=== PATIENT | male | born 1990 | race Caucasian/White ===

== ENCOUNTER 2016-11-29 19:46 | Emergency (ER) | payer OTHER ==
[2016-11-29 20:03] VITALS: BP 134/72; PULSE 66; RESP 16; TEMP 98.2; O2SAT 99
[2016-11-29] MEDS ORDERED: TDAP Vaccine 0.5 mL Syr IM ONE (20:20)
--- NOTE | 2016-11-29 21:05 | ED PDOC ---
Lower Extremity Pain/Injury Time Seen by Provider: 11/29/16 20:00 Chief Complaint (Nursing): Abnormal Skin Integrity Chief Complaint (Provider): left leg pain History Per: Patient History/Exam Limitations: no limitations Onset/Duration Of Symptoms: Hrs (earlier today) Current Symptoms Are (Timing): Still Present Additional Complaint(s): Yamileth Finch is a 26 year old male, with no previous medical history, who presents to the ED with complaints of left diez pain secondary to sustaining an injury earlier today. Pt reports to hitting his diez while doing box jumps. Pt reports to losing sensation in the leg initially but has regained it back. Pt denies any current numbness or tingling. Pt denies any knee pain or injury. Pt reports tetanus is not up to date. PMD: none provided Past Medical History Reviewed: Historical Data, Nursing Documentation, Vital Signs Vital Signs: Last Vital Signs Temp 98.2 F 11/29/16 20:00 Pulse 66 11/29/16 20:00 Resp 16 11/29/16 20:00 BP 134/72 11/29/16 20:00 Pulse Ox 99 11/29/16 20:00 - Family History Family History: States: No Known Family Hx - Home Medications Home Medications: Ambulatory Orders Medication Instructions Recorded Terbinafine Hydrochloride [Lamisil] 1 gm TP BID #30 gm 04/27/15 Ibuprofen [Motrin] 600 mg PO Q8 PRN #10 tab 11/29/16 - Allergies Allergies/Adverse Reactions: Allergies Allergy/AdvReac Type Severity Reaction Status Date / Time No Known Allergies Allergy Verified 11/29/16 20:00 Review of Systems ROS Statement: Except As Marked, All Systems Reviewed And Found Negative Musculoskeletal: Positive for: Leg Pain (left diez pain ). Negative for: Other (knee pain ) Neurological: Negative for: Numbness, Other (tingling ) Physical Exam - Reviewed Nursing Documentation Reviewed: Yes Vital Signs Reviewed: Yes - Physical Exam Appears: Positive for: Well, Non-toxic, No Acute Distress Head Exam: Positive for: ATRAUMATIC, NORMAL INSPECTION, NORMOCEPHALIC Extremity: Positive for: Normal ROM, Tenderness (anterior lower tibial spine with questionable defect ), Other (abrasion to the proximal and distal anterior left leg ). Negative for: Pedal Edema, Calf Tenderness, Deformity, Swelling Neurologic/Psych: Positive for: Alert, Oriented - ECG O2 Sat by Pulse Oximetry: 99 (RA) Pulse Ox Interpretation: Normal - Progress ED Course And Treament: TDap 0.5 ml IM x 1 dose Xry tib-fib: no fx Medical Decision Making Medical Decision Making: Initial Impression: leg contusion Initial Plan: * boostrix vaccine * x-ray tibia fibula * reevaluation Scribe Attestation: Documented by Chantell Singh, acting as a scribe for Audra Valdez PA-C. Provider Scribe Attestation: All medical record entries made by the Scribe were at my direction and personally dictated by me. I have reviewed the chart and agree that the record accurately reflects my personal performance of the history, physical exam, medical decision making, and the department course for this patient. I have also personally directed, reviewed, and agree with the discharge instructions and disposition. Disposition - Clinical Impression Clinical Impression: Contusion of leg, Abrasion - Patient ED Disposition Is Patient to be Admitted: No - Disposition Disposition: Routine/Home Disposition Time: 21:53 Condition: FAIR Prescriptions: Ibuprofen [Motrin] 600 mg PO Q8 PRN #10 tab PRN Reason: Pain, Severe (8-10) Instructions: Abrasion (ED), Contusion in Adults (ED)
--- NOTE | 2016-11-30 15:33 | RAD ---
PROCEDURE: Left tibia and fibula. HISTORY: leg injury COMPARISON: None TECHNIQUE: Standard protocol for this study/examination. FINDINGS: No significant/acute osseous, articular or soft tissue abnormalities. IMPRESSION: No significant or acute findings to account for/ related to the clinical presentation.
== END 2016-11-29 22:15 | disposition home or self-care (01) ==
LOC: H.ER 19:46
DX: S80.12XA Contusion of left lower leg, initial encounter (principal); W22.8XXA Striking against or struck by other objects, initial encounter; Y92.89 Other specified places as the place of occurrence of the external cause

== ENCOUNTER 2016-12-24 22:26 | Emergency (ER) | payer OTHER ==
[2016-12-24 22:39] VITALS: BP 118/70; PULSE 57; RESP 16; TEMP 98.4; O2SAT 100
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
== END 2016-12-24 22:52 | disposition home or self-care (01) ==
LOC: H.ER 22:26
DX: S00.431A Contusion of right ear, initial encounter (principal); W50.0XXA Accidental hit or strike by another person, initial encounter

== ENCOUNTER 2018-11-11 20:32 | Emergency (ER) | payer OTHER ==
[2018-11-11 20:39] VITALS: O2SAT 100
[2018-11-11] MEDS ORDERED: Povidone Iodine Topical 10% Sol ONE (20:55)
--- NOTE | 2018-11-11 20:56 | ED PDOC ---
HPI: Skin/Bite Injury Time Seen by Provider: 11/11/18 20:39 Chief Complaint (Nursing): Finger,Hand,&Wrist Chief Complaint (Provider): Left Hand Injury History Per: Patient History/Exam Limitations: no limitations Onset/Duration Of Symptoms: Hrs (x1) Additional Complaint(s): Patient is a 28 year old male who presents to the ED for evaluation of a hand laceration. Patient reports one hour [employer] he was cutting a sweet potato when the knife slipped and he ended up stabbing his left palm. Patient reports a dull aching sensation to the laceration site; bleeding resolved [employer]SO[employer]. Patient seeking wound evaluation. No other complaints at present. Patient is right hand dominant. Tetanus UTD. PMD: [place] Past Medical History Reviewed: Historical Data, Nursing Documentation, Vital Signs Vital Signs: Last Vital Signs Temp 98.3 F 11/11/18 20:36 Pulse 70 11/11/18 20:36 Resp 16 11/11/18 20:36 BP 133/74 11/11/18 20:36 Pulse Ox 100 11/11/18 20:36 - Medical History PMH: No Chronic Diseases - Surgical History Surgical History: No Surg Hx - Family History Family History: States: Unknown Family Hx - Home Medications Home Medications: Ambulatory Orders Medication Instructions Recorded No Known Home Med 12/23/16 - Allergies Allergies/Adverse Reactions: Allergies Allergy/AdvReac Type Severity Reaction Status Date / Time No Known Allergies Allergy Verified 12/23/16 22:40 Review of Systems ROS Statement: Except As Marked, All Systems Reviewed And Found Negative Musculoskeletal: Positive for: Hand Pain (laceration) Physical Exam - Reviewed Nursing Documentation Reviewed: Yes Vital Signs Reviewed: Yes - Physical Exam Appears: Positive for: Well, Non-toxic, No Acute Distress (resting comfortably) Head Exam: Positive for: NORMOCEPHALIC Skin: Positive for: Normal Color, Warm, Dry Eye Exam: Positive for: Normal appearance ENT: Positive for: Other (Mucus membranes moist. Airway patent, (-) stridor. ) Neck: Positive for: Painless ROM, Supple Cardiovascular/Chest: Positive for: Regular Rate, Rhythm Respiratory: Positive for: Normal Breath Sounds Extremity: Positive for: Normal ROM (throughout the left wrist, hand, and digits), Tenderness (mild surrounding laceration site), Other ((+) 3mm linear, horizontal laceration to the palmar aspect of the first webspace of the left hand (-) active bleeding.). Negative for: Capillary Refill, Deformity, Swelling (erythema, pus drainage, edema) - ECG O2 Sat by Pulse Oximetry: 100 (RA) Pulse Ox Interpretation: Normal Medical Decision Making Medical Decision Makin Initial Impression: hand laceration plan: -Wound irrigated with saline and betadine solution. No FB visualized or deep structure involvement. Wound closed with Dermabond by Vito WREN. Patient tolerated procedure well. No complications. Educated on adhesive wound care. -patient declined PO medication Diagnostic results d/w the patient in great detail. Diagnosis of hand laceration d/w the patient. Based on history, exam and diagnostic results, plan will be for outpatient follow up pmd/hand. Patient instructed to follow-up with pmd / referral provided / the clinic in 1- 2 days without fail. Advised to take medication as prescribed. Return to the emergency room at any time for any new or worsening symptoms. Patient states he fully agrees with and understands discharge instructions. States that he agrees with the plan and disposition. Verbalized and repeated discharge instructions and plan. I have given the patient opportunity to ask any additional questions. Disposition - Clinical Impression Clinical Impression: Hand laceration - Patient ED Disposition Is Patient to be Admitted: No Counseled Patient/Family Regarding: Studies Performed, Diagnosis, Need For Followup - Disposition Referrals: Thai Zaman MD [Medical Doctor] - Meng Dias MD [Staff Provider] - Disposition: Routine/Home Disposition Time: 21:30 Condition: STABLE Additional Instructions: The emergency medical care you received today was directed at your acute symptoms. If you were prescribed any medication, please fill it and take as directed. It may take several days for your symptoms to resolve. Return to the Emergency Department if your symptoms worsen, do not improve, or if you have any other problems. Please contact your doctor in 2 days for re-evaluation and follow up / or call one of the physicians/clinics you have been referred to that are listed on the Patient Visit Information form that is included in your discharge packet. Bring any paperwork you were given at discharge with you along with any medications you are taking to your follow up visit. Our treatment cannot replace ongoing medical care by a primary care provider (PCP) outside of the emergency department. Instructions: Laceration Repair With Glue (DC), Wound Care Forms: [employer] ([place]an) Print Language: [place]ISH - POA Present On Arrival: None
[2018-11-11 21:39] VITALS: BP 129/69; PULSE 72; RESP 18; TEMP 98.5
== END 2018-11-11 21:38 | disposition home or self-care (01) ==
LOC: H.ER 20:32
DX: S61.412A Laceration without foreign body of left hand, initial encounter (principal); W26.0XXA Contact with knife, initial encounter; Y92.89 Other specified places as the place of occurrence of the external cause